=== PATIENT | female | born 1960 | race Caucasian/White ===

== ENCOUNTER → 2020-09-23 | Outpatient (CLI) | payer OTHER ==
--- NOTE | 2020-09-23 10:37 | XR ---
EXAMINATION TYPE: XR hand complete RT, XR wrist complete RT DATE OF EXAM: 09/23/2020 CLINICAL HISTORY: pain TECHNIQUE: Frontal, lateral and oblique images of the right hand are obtained. COMPARISON: None. FINDINGS: There is no acute fracture/dislocation evident. The joint spaces appear within normal limi ts. Linear radiopaque foreign body seen within the soft tissues of the hand. IMPRESSION: There is no acute fracture or dislocation ICD 10 NO FRACTURE, INITIAL EVALUATION EXAMINATION TYPE: XR hand complete RT, XR wrist complete RT DATE OF EXAM: 09/23/2020 CLINICAL HISTORY: pain TECHNIQUE: Frontal, lateral and oblique images of the right wrist are obtained. COMPARISON: None. FINDINGS: There is no acute fracture/dislocation evident. The joint spaces appear within normal limits. Linear radiopaque foreign body seen within the soft tissues of the hand. IMPRESSION: There is no acute fracture or dislocation seen. ICD 10 NO FRACTURE, INITIAL EVALUATION
== END | disposition home or self-care (01) ==
LOC: RADXRMAIN 09:56
PROVIDERS: ATTEND Emergency Medicine
DX: M79.641 Pain in right hand (principal); M25.531 Pain in right wrist

== ENCOUNTER 2023-04-24 11:55 | Emergency (ER) | payer BC, OTHER ==
[2023-04-24] MEDS ORDERED: DIPH,PERTUS(ACELL)TETVAC-LF 0.5 ML VIAL IM ONE (12:31)
[2023-04-24] MEDS ORDERED: LIDOCAINE 1% INJ 10MG/ML (20 ML MDV) SQ ONE (12:31)
--- NOTE | 2023-04-24 12:58 | XR ---
EXAMINATION TYPE: XR finger LT DATE OF EXAM: 04/24/2023 COMPARISON: NONE HISTORY: Laceration TECHNIQUE: Three views are submitted. FINDINGS: The osseous structures are intact. The joint spaces are preserved and there is no acute fracture or dislocation. Soft tissue injury third digit. There are tiny metallic densities in the soft tissues a djacent to the distal phalanx second, third, fourth and fifth digits correlate for foreign body. IMPRESSION: 1. No definite acute fracture or dislocation if symptoms persist, follow-up study in 7 to 10 days wo uld be suggested. 2. Correlate for foreign body along the distal soft tissues adjacent to the distal phalanx second, th ird, fourth and fifth digits.
--- NOTE | 2023-04-24 13:46 | ED ---
Wound/Laceration HPI - General Chief Complaint: Wound/Laceration Stated Complaint: [facility],L Hand Lac Time Seen by Provider: 04/24/23 12:14 Source: patient Mode of arrival: ambulatory Limitations: no limitations - History of Present Illness Initial Comments: Patient is a 62-year-old female presented ER with chief complaint of a laceration. 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 Patient states she was seen at urgent care and was told to come here due to active bleeding. Patient denies any other injuries. Patient denies any other injuries. - Related Data Home Medications Medication Instructions Recorded Confirmed Vitamin B Complex 1 each PO DAILY 09/07/14 09/07/14 Allergies Allergy/AdvReac Type Severity Reaction Status Date / Time No Known Allergies Allergy Verified 04/24/23 12:11 Review of Systems ROS Statement: Those systems with pertinent positive or pertinent negative responses have been documented in the HPI. ROS Other: All systems not noted in ROS Statement are negative. Past Medical History Past Medical History: Hypertension Past Surgical History: No Surgical Hx Reported Past Psychological History: No Psychological Hx Reported Smoking Status: Never smoker Past Alcohol Use History: Occasional Past Drug Use History: None Reported General Exam Limitations: no limitations General appearance: alert, in no apparent distress Respiratory exam: Present: normal lung sounds bilaterally. Absent: respiratory distress, wheezes, rales, rhonchi, stridor Cardiovascular Exam: Present: regular rate, normal rhythm, normal heart sounds. Absent: systolic murmur, diastolic murmur, rubs, gallop, clicks Extremities exam: Present: other (3 similar laceration noted to the third left digit in between the DIP and PIP joint active bleeding present. Sensation intact and active full range of motion. 1 cm lacteraion to CIP of second left digit) Neurological exam: Present: alert, oriented X3, CN II-XII intact Psychiatric exam: Present: normal affect, normal mood Skin exam: Present: warm, dry, intact, normal color. Absent: rash Course Vital Signs 04/24/23 12:09 Temperature 98.4 F Pulse Rate 74 Respiratory 20 Rate Blood Pressure 185/96 O2 Sat by Pulse 97 Oximetry Procedures - Laceration Laceration #1 Consent Obtained: verbal consent Indication: laceration Site: hand Size (cm): 3 Description: linear Depth: simple, single layer, arterial injury Anesthetic Used: lidocaine 1% Anesthesia Technique: nerve block Amount (mls): 5 Pre-repair: wound explored, irrigated extensively, deep structures intact Type of Sutures: nylon Size of Sutures: 4-0 Number of Sutures: 6 Technique: simple, interrupted, horizontal mattress (Used to control arterial injury.) Patient Tolerated Procedure: well, no complications Laceration #2 Consent Obtained: verbal consent Indication: laceration Site: hand Size (cm): 1 Description: linear Depth: simple, single layer Anesthetic Used: lidocaine 1% Anesthesia Technique: local infiltration Amount (mls): 2 Pre-repair: wound explored, irrigated extensively, deep structures intact Type of Sutures: nylon Size of Sutures: 4-0 Number of Sutures: 1 Technique: simple, interrupted Medical Decision Making - Medical Decision Making Was pt. sent in by a medical professional or institution (, PA, VICE PRESIDENT DIGITAL STRATEGIST, urgent care, hospital, or assisted...) When possible be specific @ -No Did you speak to anyone other than the patient for history (EMS, parent, family, police, friend...)? What history was obtained from this source @ -Friend Did you review nursing and triage notes (agree or disagree)? Why? @ -I reviewed and agree with nursing and triage notes Were old charts reviewed (outside hosp., previous admission, EMS record, old EKG, old radiological studies, urgent care reports/EKG's, assisted records)? Report findings @ -No old charts were reviewed Differential Diagnosis (chest pain, altered mental status, abdominal pain women, abdominal pain men, vaginal bleeding, weakness, fever, dyspnea, syncope, headache, dizziness, GI bleed, back pain, seizure, CVA, palpatations, mental health, musculoskeletal)? @ -Laceration, abrasion, contusion, fracture, dislocation. EKG interpreted by me (3pts min.). @ -None X-rays interpreted by me (1pt min.). @ -Left finger x-ray shows no acute fractures or dislocations. Several small foreign bodies noted along the distal soft tissues of the distal second and third fourth and fifth digits. CT interpreted by me (1pt min.). @ -None done U/S interpreted by me (1pt. min.). @ -None done What testing was considered but not performed or refused? (CT, X-rays, U/S, labs)? Why? @ -None What meds were considered but not given or refused? Why? @ -None Did you discuss the management of the patient with other professionals (professionals i.e. , PA, VICE PRESIDENT DIGITAL STRATEGIST, lab, RT, psych nurse, social problems specialist, sterile tech, teacher, security control room officer, hospice case manager)? Give summary @ -No Was smoking cessation discussed for >3mins.? @ -No Was critical care preformed (if so, how long)? @ -No Were there social determinants of health that impacted care today? How? (Homelessness, low income, unemployed, alcoholism, drug addiction, transportation, low edu. Level, literacy, decrease access to med. care, long-term, rehab)? @ -No Was there de-escalation of care discussed even if they declined (Discuss DNR or withdrawal of care, Hospice)? DNR status @ -No What co-morbidities impacted this encounter? (DM, HTN, Smoking, COPD, CAD, Cancer, CVA, ARF, Chemo, Hep., AIDS, mental health diagnosis, sleep apnea, morbid obesity)? @ -None Was patient admitted / discharged? Hospital course, mention meds given and route, prescriptions, significant lab abnormalities, going to OR and other pertinent info. @ -Discharge. Patient is a 62-year-old female presented ER with chief complaint of a left finger injury. Upon examination, patient's vital signs are stable. Physical exam was significant for 3 cm linear laceration along the third palmar digit inbetween the DIP and PIP joints. Wound was actively bleeding. Full active ROM with deep structures intact. Sensation was intact. 2+ left radial pulse. There was also a 1 cm laceration over the DIP joint of 2nd left digit. No active bleeding. Full active ROM. Patient received tetanus vaccination. I performed a digital block on her third digit for pain control in the ER. Left finger x-ray shows no acute fractures or dislocations. There were several small foreign bodies noted along the distal soft tissues of the distal second and third fourth and fifth digits. 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 On exam there was no evidence of foreign body or tenderness to palpation of location of foreign bodies. Lacerations were closed using 4-0 nylon and Vicryl sutures. Bleeding was controlled after wound repair. Range of motion and sensation was intact. Wound was cleaned with iodine and sterile water. Wound was wrapped with gauze prior to discharge. Instructed patient to have sutures removed in the next 7-10 days. Monitor for signs infection and clean wound daily with warm soapy water. I advised patient to avoid submerging hand in water. Return parameters were discussed. Patient will be discharged in stable condition with follow-up to PCP. Patient expressed understanding and agreement with care plan. Undiagnosed new problem with uncertain prognosis? @ -No Drug Therapy requiring intensive monitoring for toxicity (Heparin, Nitro, Insulin, Cardizem)? @ -No Were any procedures done? @ -Yes Diagnosis/symptom? @ -Laceration Acute, or Chronic, or Acute on Chronic? @ -Acute Uncomplicated (without systemic symptoms) or Complicated (systemic symptoms)? @ -Uncomplicated Side effects of treatment? @ -No Exacerbation, Progression, or Severe Exacerbation? @ -No Poses a threat to life or bodily function? How? (Chest pain, [place], [place], pneumonia, PE, COPD, DKA, ARF, appy, cholecystitis, CVA, Diverticulitis, Homicidal, Suicidal, threat to staff... and all critical care pts) @ -No Disposition Clinical Impression: Laceration Disposition: HOME SELF-CARE Condition: Stable Additional Instructions: Please have sutures removed in 7-10 days. Please keep area clean and dry. Monitor for signs of infection. Please return to the Emergency Department if symptoms worsen or any other concerns. Is patient prescribed a controlled substance at d/c from ED?: No Referrals: Ryan Cleaning MD [Primary Care Provider] - 1-2 days Time of Disposition: 13:46
[2023-04-24 14:04] VITALS: BP 132/68; PULSE 67; RESP 16; TEMP 97.9
== END 2023-04-24 14:03 | disposition home or self-care (01) ==
LOC: EC 11:55
DX: S61.221A Laceration with foreign body of left index finger without damage to nail, initial encounter (principal); S61.227A Laceration with foreign body of left little finger without damage to nail, initial encounter; S61.223A Laceration with foreign body of left middle finger without damage to nail, initial encounter; S61.225A Laceration with foreign body of left ring finger without damage to nail, initial encounter; I10 Essential (primary) hypertension; Z23 Encounter for immunization; W31.9XXA Contact with unspecified machinery, initial encounter; Y99.0 Civilian activity done for income or pay
CPT/HCPCS: 73140; 90715; 12042; 99283; 90471; J2001